=== PATIENT | female | born 1985 | race Caucasian/White ===

== ENCOUNTER 2020-11-18 15:08 | Emergency (ER) | payer OTHER ==
[~2020-11-18] VITALS: Ht 167.6 cm; Wt 75.0 kg
[2020-11-18 16:14] LABS: BASO % 0 % (0-3); EOS % 0 % (0-3); HEMATOCRIT 38.2 % (36.0-47.0); HEMOGLOBIN 12.9 g/dL (12.0-15.5); LYMPH # 2.1 x10^3/uL (1.0-4.8); LYMPH % 20 % (24-48); MEAN CORPUSCULAR HEMOGLOBIN 30 pg (25-35); MEAN CORPUSCULAR HGB CONC 34 g/dL (31-37); MEAN CORPUSCULAR VOLUME 88 fL (79-100); MONO # 0.8 x10^3/uL (0.0-1.1); MONO % 8 % (0-9); NEUT # 7.6 x10^3/uL (1.8-7.7); NEUT % 72 % (31-73); PLATELET COUNT 281 x10^3/uL (140-400); RED BLOOD COUNT 4.34 x10^6/uL (3.50-5.40); RED CELL DISTRIBUTION WIDTH 13.6 % (11.5-14.5); WHITE BLOOD COUNT 10.6 x10^3/uL (4.0-11.0)
[2020-11-18 16:23] LABS: CREATININE 0.7 mg/dL (0.6-1.0); GFR 96.4; POTASSIUM 3.8 mmol/L (3.5-5.1)
[2020-11-18 16:29] LABS: ALBUMIN 3.5 g/dL (3.4-5.0); TOTAL BILIRUBIN 0.5 mg/dL (0.2-1.0); TOTAL PROTEIN 7.1 g/dL (6.4-8.2)
[2020-11-18] MEDS: IV NORMAL SALINE 1000ML BAG 1,000 ML IV SCH (17:00)
[2020-11-18 17:19] LABS: BILIRUBIN,URINE NEGATIVE (NEG); CLARITY,URINE CLEAR; COLOR,URINE YELLOW; NITRITE,URINE NEGATIVE (NEG); PH,URINE 5.5 (<5.0-8.0); PROTEIN,URINE NEGATIVE (NEG-TRACE); UROBILINOGEN,URINE 0.2 mg/dL (0.2 mg/dL)
[2020-11-18 17:26] LABS: AMPHETAMINE/METHAMPHETAMINE NEG (NEG); BARBITURATES NEG (NEG); BENZODIAZEPINES NEG (NEG); CANNABINOIDS NEG (NEG); COCAINE NEG (NEG); METHADONE NEG (NEG); OPIATES NEG (NEG); PHENCYCLIDINE NEG (NEG)
--- NOTE | 2020-11-18 17:27 | PHYS DOC ---
Past Medical History Past Medical History: Other Additional Past Medical Histor: PCOS, PRECLAMPSIA Past Surgical History: Appendectomy, Tonsillectomy Smoking Status: Never Smoker Alcohol Use: None General Adult EDM: Chief Complaint: DIZZY/LIGHT HEADED HPI: HPI: Patient is a 35 year old female who presents with is here from out of town at [place] and was standing at [employer] in the checkout line and began to feel lightheaded, hot and started sweating. She never passed out but felt like she has been passed out. She is 13 weeks . This is her third , second baby and she is had 1 miscarriage. She did eat at noon and she had breakfast. She states at noon she had [employer] chicken nuggets, Hungarian fries and a diet Dr. Clay. Patient states she just currently just feels tired and slightly weak. She states that she is on Metformin, fluoxetine and vitamins. She states that this has been a uncomplicated and she has had no complications in any of her pregnancies. She states that she has good follow-up. Patient denies chest pain, shortness of breath, cough, recent illness, nausea, vomiting, back pain, urinary symptoms, vaginal bleeding, abnormal vaginal discharge, abdominal pain, fever, syncope, dizziness, headache. Review of Systems: Review of Systems: Constitutional: Denies fever or chills. [] Eyes: Denies change in visual acuity. [] HENT: Denies nasal congestion or sore throat. [] Respiratory: Denies cough or shortness of breath. [] Cardiovascular: Denies chest pain or edema. [] GI: Denies abdominal pain, nausea, vomiting, bloody stools or diarrhea. [] : Denies dysuria. [] Musculoskeletal: Denies back pain or joint pain. [] Integument: Denies rash.+ Hot flash, + sweating [] Neurologic: Denies headache, focal weakness or sensory changes. + Lightheadedness [] Endocrine: Denies polyuria or polydipsia. [] Lymphatic: Denies swollen glands. [] Psychiatric: Denies depression or anxiety. [] Heart Score: C/O Chest Pain: No Risk Factors: Risk Factors: DM, Current or recent (<one month) smoker, HTN, HLP, family history of CAD, obesity. Risk Scores: Score 0 - 3: 2.5% MACE over next 6 weeks - Discharge Home Score 4 - 6: 20.3% MACE over next 6 weeks - Admit for Clinical Observation Score 7 - 10: 72.7% MACE over next 6 weeks - Early Invasive Strategies Current Medications: Current Medications Medications (Trade) Dose Ordered Sig/Adamaris Start Time Stop Time Status Last Admin Dose Admin Sodium Chloride 1,000 ml @ 1,000 mls/hr Q1H 11/18/20 16:00 11/18/20 16:59 DC Allergies: Allergies: Allergies Coded Allergies Type Severity Reaction Last Updated Verified morphine Allergy Unknown 11/18/20 Yes Physical Exam: PE: Constitutional: Well developed, well nourished, no acute distress, non-toxic appearance. [] HENT: Normocephalic, atraumatic, bilateral external ears normal, oropharynx moist, no oral exudates, nose normal. [] Eyes: PERRLA, EOMI, conjunctiva normal, no discharge. [] Neck: Normal range of motion, no tenderness, supple, no stridor. [] Cardiovascular:Heart rate regular rhythm, no murmur [] Lungs & Thorax: Bilateral breath sounds clear to auscultation [] Abdomen: Bowel sounds normal, soft, no tenderness, no masses, no pulsatile masses. [] Skin: Warm, dry, no erythema, no rash. [] Back: No tenderness, no CVA tenderness. [] Extremities: No tenderness, no cyanosis, no clubbing, ROM intact, no edema. [] Neurologic: Alert and oriented X 3, normal motor function, normal sensory function, no focal deficits noted. [] Psychologic: Affect normal, judgement normal, mood normal. Normal physical exam [] Current Patient Data: Labs: Laboratory Tests Test 11/18/20 15:28 White Blood Count 10.6 x10^3/uL (4.0-11.0) Red Blood Count 4.34 x10^6/uL (3.50-5.40) Hemoglobin 12.9 g/dL (12.0-15.5) Hematocrit 38.2 % (36.0-47.0) Mean Corpuscular Volume 88 fL (79-100) Mean Corpuscular Hemoglobin 30 pg (25-35) Mean Corpuscular Hemoglobin Concent 34 g/dL (31-37) Red Cell Distribution Width 13.6 % (11.5-14.5) Platelet Count 281 x10^3/uL (140-400) Neutrophils (%) (Auto) 72 % (31-73) Lymphocytes (%) (Auto) 20 % (24-48) L Monocytes (%) (Auto) 8 % (0-9) Eosinophils (%) (Auto) 0 % (0-3) Basophils (%) (Auto) 0 % (0-3) Neutrophils # (Auto) 7.6 x10^3/uL (1.8-7.7) Lymphocytes # (Auto) 2.1 x10^3/uL (1.0-4.8) Monocytes # (Auto) 0.8 x10^3/uL (0.0-1.1) Eosinophils # (Auto) 0.0 x10^3/uL (0.0-0.7) Basophils # (Auto) 0.0 x10^3/uL (0.0-0.2) Sodium Level 137 mmol/L (136-145) Potassium Level 3.8 mmol/L (3.5-5.1) Chloride Level 102 mmol/L (98-107) Carbon Dioxide Level 24 mmol/L (21-32) Anion Gap 11 (6-14) Blood Urea Nitrogen 8 mg/dL (7-20) Creatinine 0.7 mg/dL (0.6-1.0) Estimated GFR (Cockcroft-Gault) 96.4 BUN/Creatinine Ratio 11 (6-20) Glucose Level 74 mg/dL (70-99) Calcium Level 9.0 mg/dL (8.5-10.1) Total Bilirubin 0.5 mg/dL (0.2-1.0) Aspartate Amino Transferase (AST) 23 U/L (15-37) Alanine Aminotransferase (ALT) 28 U/L (14-59) Alkaline Phosphatase 59 U/L (46-116) Troponin I Quantitative < 0.017 ng/mL (0.000-0.055) Total Protein 7.1 g/dL (6.4-8.2) Albumin 3.5 g/dL (3.4-5.0) Albumin/Globulin Ratio 1.0 (1.0-1.7) Laboratory Tests 11/18/20 15:28 Laboratory Tests 11/18/20 15:28 Vital Signs: Vital Signs Date Time Temp Pulse Resp B/P (MAP) Pulse Ox O2 Delivery O2 Flow Rate FiO2 11/18/20 15:11 98.3 80 12 125/72 (89) 98 Room Air 98.3 EKG: EK and read by Dr. Vanegas as normal sinus rhythm and no STEMI Radiology/Procedures: Radiology/Procedures: [] Course & Med Decision Making: Course & Med Decision Making Pertinent Labs and Imaging studies reviewed. (See chart for details) See HPI. Abdomen is soft and nontender. Speaks full clear sentences. Ambula tory with a steady gait. Skin pink warm and dry. Vital signs within normal limits. Orthostatics are normal. EKG shows normal sinus rhythm and no STEMI. No extremity swelling. She is not hypertensive. PERRLA. Heart and oriented x4. Urinalysis does show some ketones so she is hydrated with normal saline. Blood work is unremarkable. Patient is stable and feeling better. heart tones are 156. [] Dragon Disclaimer: Dragon Disclaimer: This electronic medical record was generated, in whole or in part, using a voice recognition dictation system. Departure Departure Impression: Primary Impression: Dizziness Disposition: 01 DC HOME SELF CARE/HOMELESS Condition: STABLE Referrals: UNKNOWN PCP NAME (PCP) Patient Instructions: ABCs of , Dizziness, [id number] Additional Instructions: Follow-up with your OB as soon as possible. Drink plenty of water. Rest as much as possible. If you begin having abdominal pain return emergency room. RENU GLOVER APRN Nov 18, 2020 17:27
[2020-11-18 17:31] LABS: RBC,URINE RARE /HPF (0-2)
[2020-11-18 17:32] LABS: BACTERIA,URINE FEW /HPF (0-FEW)
[2020-11-18 17:33] LABS: AMORPHOUS SEDIMENT,UR PRESENT /HPF
--- NOTE | 2020-11-18 18:23 | EKG ---
[facility] [address] [place] [address] Test Date: 2020-11-18 Test Time: 16:13:05 Pat Name: JERRY WELCH Department: Room: Gender: F Grooming Assistant: : 1985 Requested By: RENU GLOVER Order Number: [id number] Reading MD: Measurements Intervals Zullinger Rate: 78 P: 34 NE: 132 QRS: 35 QRSD: 88 T: 15 QT: 394 QTc: 453 Interpretive Statements SINUS RHYTHM NORMAL ECG RI6.02 No previous ECG available for comparison
[2020-11-18 19:10] VITALS: BP 119/65
== END 2020-11-18 19:10 | disposition home or self-care (01) ==
LOC: ER 15:08
DX: O26.891 Other specified pregnancy related conditions, first trimester (principal); R42 Dizziness and giddiness; R53.1 Weakness; Z90.89 Acquired absence of other organs; Z88.6 Allergy status to analgesic agent; Z3A.13 13 weeks gestation of pregnancy
CPT/HCPCS: 36415; 80053; 80307; 81001; 84484; 85025; 87086; 93005; 96360; 96361; 99285; J7030